=== PATIENT | female | born 1980 | race Caucasian/White ===

== ENCOUNTER 2016-11-18 23:05 | Inpatient (IN) | payer SELFPAY ==
[~2016-11-18] VITALS: Ht 165.1 cm; Wt 59.0 kg
[2016-11-18] MEDS ORDERED: MORPHINE SULFATE 8 MG/ML INJ ONE (23:12)
[2016-11-18] MEDS ORDERED: ONDANSETRON HCL 4 MG/2 ML VIAL ONE (23:12)
[2016-11-18 23:24] LABS: AUTOMATED NEUTROPHIL # 4.3 TH/MM3 (1.8-7.7); BASOPHIL % 0.5 % (0.0-2.0); EOSINOPHIL # 0.1 TH/MM3 (0-0.4); EOSINOPHIL % 0.7 % (0.0-4.0); HEMATOCRIT 39.5 % (35.0-46.0); HEMO FLAGS DIFF FINAL; LYMPH % 31.2 % (9.0-44.0); LYMPHOCYTE # 2.1 TH/MM3 (1.0-4.8); MEAN CELL VOLUME 95.2 FL (80.0-100.0); MEAN CORPUSCULAR HEMOGLOBIN 32.4 PG (27.0-34.0); MEAN CORPUSCULAR HGB CONC 34.1 % (32.0-36.0); MONO % 5.3 % (0.0-8.0); NEUT % 62.3 % (16.0-70.0); PLATELET COUNT 201 TH/MM3 (150-450); RED BLOOD COUNT 4.15 MIL/MM3 (4.00-5.30); RED CELL DISTRIBUTION WIDTH 13.3 % (11.6-17.2); WHITE BLOOD COUNT 6.9 TH/MM3 (4.0-11.0)
[2016-11-18 23:26] LABS: I-STAT POTASSIUM 3.3 MMOL/L (3.5-4.9)
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
[2016-11-18] MEDS ORDERED: MISCELLANEOUS NURSING INFORMATION XX SCH (23:30)
[2016-11-18] MEDS ORDERED: MAGNESIUM HYDROXIDE SUSP 30 ML CUP PO PRN (23:30)
[2016-11-18] MEDS ORDERED: LACTATED RINGER'S 1000 ML INJ 1,000 ML IV ONE (23:30)
[2016-11-18] MEDS ORDERED: ACETAMINOPHEN/HYDROcodone 325 MG/5 MG TAB PO PRN (23:30)
[2016-11-18] MEDS ORDERED: ONDANSETRON HCL 4 MG/2 ML VIAL IV PRN (23:30)
[2016-11-18] MEDS ORDERED: SODIUM CHLORIDE 0.9% FLUSH 10 ML FLUSH IV FLUSH PRN (23:30)
[2016-11-18] MEDS ORDERED: CHLORHEXIDINE GLUCONATE 2 % 1 PACK (2 CLOTHS) TOP PRN (23:30)
[2016-11-18] MEDS ORDERED: IOHEXOL 350 MG/ML 10 ML VIAL (for RAD DIAG) IV ONE (23:31)
[2016-11-18 23:35] LABS: APTT (PATIENT) 24.3 SEC (24.3-30.1); PROTHROMBIN TIME - PATIENT 10.7 SEC (9.8-11.6)
[2016-11-18] MEDS ORDERED: HYDROmorphone HCL PF 1 MG/ML VIAL ONE (23:37)
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
[2016-11-19] MEDS ORDERED: ZOLPIDEM TARTRATE 5 MG TAB PO PRN (00:15)
[2016-11-19] MEDS: clonazePAM 1 MG TAB PO SCH ×2 (01:05→08:23)
[2016-11-19 02:20] VITALS: BP 125/75; PULSE 99; RESP 18; TEMP 96.8; O2SAT 99
[2016-11-19] MEDS ORDERED: NITR100C4 PO (02:27)
[2016-11-19] MEDS: ACETAMINOPHEN/HYDROcodone 325 MG/5 MG TAB PO PRN ×2 (02:38→08:22)
[2016-11-19] MEDS ORDERED: CHLORHEXIDINE GLUCONATE 2 % 1 PACK (2 CLOTHS) TOP SCH (04:00)
[2016-11-19 07:55] LABS: AUTOMATED NEUTROPHIL # 4.8 TH/MM3 (1.8-7.7); BASOPHIL % 0.5 % (0.0-2.0); EOSINOPHIL # 0.1 TH/MM3 (0-0.4); EOSINOPHIL % 1.2 % (0.0-4.0); HEMATOCRIT 35.8 % (35.0-46.0); HEMO FLAGS DIFF FINAL; LYMPHOCYTE # 3.2 TH/MM3 (1.0-4.8); MEAN CELL VOLUME 97.1 FL (80.0-100.0); MEAN CORPUSCULAR HEMOGLOBIN 32.6 PG (27.0-34.0); MEAN CORPUSCULAR HGB CONC 33.6 % (32.0-36.0); MONO % 5.3 % (0.0-8.0); PLATELET COUNT 190 TH/MM3 (150-450); RED BLOOD COUNT 3.69 MIL/MM3 (4.00-5.30); RED CELL DISTRIBUTION WIDTH 13.3 % (11.6-17.2); WHITE BLOOD COUNT 8.5 TH/MM3 (4.0-11.0)
[2016-11-19 08:00] VITALS: BP 123/72; PULSE 96; RESP 16; TEMP 97.5; O2SAT 100
[2016-11-19 08:24] LABS: BICARBONATE 21.3 MEQ/L (21.0-32.0); POTASSIUM 3.2 MEQ/L (3.5-5.1)
[2016-11-19] MEDS ORDERED: DOCUSATE SODIUM 100 MG CAP PO SCH (09:00)
[2016-11-19] MEDS ORDERED: POTASSIUM CHLORIDE 10 MEQ CONTROLLED RELEASE TAB PO ONE (10:15)
[2016-11-19 11:18] VITALS: BP 113/68; PULSE 95; RESP 20; TEMP 97.9; O2SAT 98
[2016-11-19] MEDS ORDERED: DOCU1CAP39 PO (11:40)
[2016-11-19] MEDS ORDERED: MAGN400S PO (11:40)
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
[2016-11-19] MEDS ORDERED: POTASSIUM CHLORIDE 20 MEQ CONTROLLED RELEASE TAB PO ONE (18:00)
== END 2016-11-19 13:09 | disposition home or self-care (01) | DRG 89 ==
LOC: NEPI 23:05 → NEDA 23:40 → EEVIPCON 23:40 → EDBD 23:40 → OBSVTOIN 23:40 → N06B 11-19 02:14
PROVIDERS: ADMIT Surgery; ATTEND Surgery
DX: S06.0X9A Concussion with loss of consciousness of unspecified duration, initial encounter (principal); Q61.3 Polycystic kidney, unspecified; Y92.9 Unspecified place or not applicable; Y93.89 Activity, other specified; Y08.89XA Assault by other specified means, initial encounter; R40.2412 Glasgow coma scale score 13-15, at arrival to emergency department; F10.129 Alcohol abuse with intoxication, unspecified; K57.10 Diverticulosis of small intestine without perforation or abscess without bleeding
CPT/HCPCS: 70450; 70486; 71010; 71260; 72125; 72170; 74177; 80048; 82435; 82565; 82947; 84132; 84295; 84520; 85025; 85610; 85730; 86850; 86900; 86901; 94150; J1170; J2270; J2405; J7120; Q9967